=== PATIENT | female | born 1955 | race African-American/Black ===

== ENCOUNTER 2022-01-03 14:44 | Emergency (ER) | payer MEDICARE, MEDICAID ==
[~2022-01-03] VITALS: Ht 170.2 cm; Wt 98.6 kg
[2022-01-03 17:03] VITALS: BP 145/70
== END 2022-01-03 17:05 | disposition home or self-care (01) ==
LOC: EMS 14:44
DX: T17.228A Food in pharynx causing other injury, initial encounter (principal); I11.0 Hypertensive heart disease with heart failure; I50.9 Heart failure, unspecified; G62.9 Polyneuropathy, unspecified; F17.210 Nicotine dependence, cigarettes, uncomplicated; X58.XXXA Exposure to other specified factors, initial encounter; Y93.89 Activity, other specified; Y92.89 Other specified places as the place of occurrence of the external cause; Y99.8 Other external cause status
CPT/HCPCS: 99281; Z7502